=== PATIENT | male | born 1990 | race African-American/Black ===

== ENCOUNTER 2019-01-27 11:00 | Observation (INO) | payer SELFPAY ==
[~2019-01-27] VITALS: Ht 182.9 cm; Wt 87.7 kg
[2019-01-27] VITALS (8 sets, daily range): BP systolic 119–144; BP diastolic 72–84; Ht 182.9 cm; Wt 87.7 kg
[2019-01-27 11:23] LABS: BASOPHILS 0.2 % (0-2); EOSINOPHILS 1.6 % (0-7); HEMATOCRIT 46.6 % (42.0-54.0); HEMOGLOBIN 16.2 g/dL (13.5-17.5); IMMATURE GRANULOCYTES 0.4 % (0-5); LYMPHOCYTES 43.9 % (15-50); MCH 30.7 pg (26.0-34.0); MCHC 34.8 g/dL (31.0-37.0); MCV 88.3 fL (80.0-100.0); MEAN PLATELET VOLUME 10.5 fL (7.4-10.4); MONOCYTES 11.4 % (2-11); NEUTROPHILS 42.5 % (40-80); PLATELET COUNT 281 10x3/uL (130-400); RBC 5.28 10x6/uL (4.20-6.10); RDW 14.4 % (11.5-14.5); WBC 10.8 10x3/uL (4.8-10.8)
[2019-01-27 12:07] LABS: ALBUMIN 4.2 g/dL (3.4-5.0); ANION GAP 14.8 mmol/L (8-16); BILIRUBIN - TOTAL 0.64 mg/dL (0.2-1.3); CALCIUM 8.9 mg/dL (8.5-10.1); CARBON DIOXIDE 27.4 mmol/L (21.0-32.0); CREATININE - SERUM 1.5 mg/dL (0.6-1.3); MAGNESIUM - SERUM 2.3 mg/dL (1.8-2.4); POTASSIUM - SERUM 4.2 mmol/L (3.5-5.1); PROTEIN - SERUM 7.8 g/dL (6.4-8.2)
[2019-01-27] MEDS ORDERED: KEPPRA500 MG PO (13:56)
[2019-01-28] VITALS: BP 112/64
[2019-01-28 05:03] LABS: BASOPHILS 0.1 % (0-2); EOSINOPHILS 1.2 % (0-7); HEMATOCRIT 42.6 % (42.0-54.0); IMMATURE GRANULOCYTES 0.1 % (0-5); LYMPHOCYTES 25.6 % (15-50); MCH 30.5 pg (26.0-34.0); MCHC 35.2 g/dL (31.0-37.0); MCV 86.6 fL (80.0-100.0); MEAN PLATELET VOLUME 10.1 fL (7.4-10.4); MONOCYTES 10.3 % (2-11); NEUTROPHILS 62.7 % (40-80); PLATELET COUNT 249 10x3/uL (130-400); RBC 4.92 10x6/uL (4.20-6.10); RDW 14.2 % (11.5-14.5)
[2019-01-28 05:32] LABS: ANION GAP 12.2 mmol/L (8-16); CALCIUM 8.9 mg/dL (8.5-10.1); CARBON DIOXIDE 28.6 mmol/L (21.0-32.0); CREATININE - SERUM 1.3 mg/dL (0.6-1.3); POTASSIUM - SERUM 3.8 mmol/L (3.5-5.1)
[2019-01-28 05:34] LABS: WBC 7.3 10x3/uL (4.8-10.8)
[2019-01-28 09:15] VITALS: BP 109/55
== END 2019-01-28 13:34 | disposition home or self-care (01) ==
LOC: D.ER 11:00 → EDBD 11:00 → D.MS 15:00 → D.EDHOLD 15:00 → OBSVTIME 15:00 → D.MS 15:06
PROVIDERS: Emergency Medicine; ADMIT Internal Medicine Nephrology; ATTEND Internal Medicine Nephrology
DX: R56.9 Unspecified convulsions (principal); N17.9 Acute kidney failure, unspecified; F17.210 Nicotine dependence, cigarettes, uncomplicated